=== PATIENT | male | born 1945 | race Caucasian/White ===

== ENCOUNTER 2016-10-09 08:00 | Outpatient (CLI) | payer MEDICARE, OTHER | END 2016-10-09 08:01 | disposition home or self-care (01) | DX: R42 Dizziness and giddiness (principal); I10 Essential (primary) hypertension; R55 Syncope and collapse ==

== ENCOUNTER 2017-04-11 08:11 | Outpatient (CLI) | payer MEDICARE, OTHER ==
[2017-04-11 14:23] LABS: TRIGLYCERIDES 274 mg/dL; VLDL CHOLESTEROL 55 mg/dL
[2017-04-11 14:24] LABS: ALBUMIN/GLOBULIN RATIO 1.4 (1.0-2.2); BILIRUBIN,TOTAL 1.1 mg/dL (0.2-1.0); BUN - BLOOD UREA NITROGEN 14 mg/dL (6-20); CARBON DIOXIDE - CO2 23 mmol/L (21-32); CHLORIDE 105 mmol/L (101-111); CHOL/HDL RATIO 4.8 (<5.0); CHOLESTEROL 187 mg/dL; CREATININE 0.9 mg/dL (0.6-1.2); GFR - MDRD 84 (>89); GLUCOSE 113 mg/dL (70-100); HDL CHOLESTEROL 39 mg/dL; LDL/HDL RATIO 2.4 (<3.6); SODIUM 137 mmol/L (135-145); TOTAL PROTEIN 7.1 g/dL (6.7-8.2)
== END 2017-04-11 08:12 | disposition home or self-care (01) ==
LOC: LAB.WCP 08:11
PROVIDERS: ATTEND Family Medicine
DX: R55 Syncope and collapse (principal); E88.1 Lipodystrophy, not elsewhere classified; I10 Essential (primary) hypertension
CPT/HCPCS: 36415; 80053; 80061

== ENCOUNTER 2017-05-08 14:41 | Outpatient (CLI) | payer MEDICARE, OTHER ==
--- NOTE | 2017-05-08 17:00 | Ultrasound Report ---
RENAL ULTRASOUND: 05/08/2017 CLINICAL INDICATION: Hematuria. TECHNIQUE: Real-time sonographic vascular imaging was performed by the sound person through the kidney s utilizing both color-flow and Doppler spectral analysis. Multiple sales representative education courses static images wer e saved for review. FINDINGS: The right kidney measures 11.8 x 7.6 x 7.2 cm, and the left kidney measures 12.0 x 5.8 x 4 .9 cm. No hydronephrosis, focal renal lesion, or perinephric collection is seen. No definite shadowin g calculus is appreciated. Prevoid, the bladder measures 7.5 x 5.8 x 5.7 cm, yielding a prevoid volume of 130 mL. Bilateral uret eral jets are visualized. Postvoid residual is 30 mL. No focal bladder wall lesion is appreciated. IMPRESSION: A 30 mL POSTVOID RESIDUAL. OTHERWISE, UNREMARKABLE RENAL ULTRASOUND. NO EVIDENT ETIOLOGY FOR PATIENT'S HEMATURIA. JOB #: [id number] EXT JOB #:
== END 2017-05-08 14:42 | disposition home or self-care (01) ==
LOC: DI 14:41
PROVIDERS: ATTEND Physician Assistant Medical
DX: R31.9 Hematuria, unspecified (principal)
CPT/HCPCS: 76770

== ENCOUNTER 2017-06-19 10:11 | Outpatient (CLI) | payer MEDICARE, OTHER ==
[2017-06-19] MEDS ORDERED: IOPAMIDOL-300 50 ML VIAL ONE (14:05)
[2017-06-19] MEDS ORDERED: IOPAMIDOL-300 100 ML VIAL IVP ONE (14:44)
--- NOTE | 2017-06-19 19:05 | CT Report ---
CT IVP: 06/19/2017 CLINICAL INDICATION: Gross hematuria. TECHNIQUE: Axial CT images of the abdomen and pelvis were obtained prior to and following 100 mL Iso satish-300 intravenously, using split-bolus technique. COMPARISON: 02/06/2008 FINDINGS: Limited evaluation of the lung bases is unremarkable. ABDOMEN: On the unenhanced images, the kidneys demonstrate no evidence of hydronephrosis or nephroli thiasis. The kidneys demonstrate symmetric uptake and excretion of contrast. Small cysts are presen t. No solid renal lesion or collecting system lesion is identified. The liver, spleen, pancreas and adrenal glands are unremarkable. The gallbladder is not dilated. No bowel dilatation, free gas, or free fluid is present. No abdominal adenopathy is seen. The appendix is seen in the right abdomen, and is normal in caliber. PELVIS: The distal ureters and urinary bladder appear unremarkable. No pelvic adenopathy or free fl uid is present. Osseous structures demonstrate degenerative changes. IMPRESSION: NO EVIDENCE OF NEPHROLITHIASIS. NO SOLID RENAL MASS IDENTIFIED. CONSIDER FURTHER EVALU ATION WITH CYSTOSCOPY. In accordance with CT protocol optimization, one or more of the following dose reduction techniques w ere utilized for this exam: automated exposure control, adjustment of mA and/or KV based on patient size, or use of iterative reconstructive technique. JOB #: [id number] EXT JOB #:[id number]
== END 2017-06-19 10:12 | disposition home or self-care (01) ==
LOC: DI 10:11
PROVIDERS: ATTEND Physician Assistant
DX: R31.0 Gross hematuria (principal)
CPT/HCPCS: 74178; Q9967

== ENCOUNTER 2018-01-29 08:00 | Outpatient (CLI) | payer MEDICARE, OTHER ==
[2018-01-29 12:52] LABS: BASOPHILS % (AUTO) 0.8 %; EOSINOPHILS # (AUTO) 0.3 10^3/uL (0.0-0.7); EOSINOPHILS % (AUTO) 5.9 %; HGB - HEMOGLOBIN 14.5 g/dL (14.0-18.0); LYMPHOCYTES # (AUTO) 2.2 10^3/uL (1.5-3.5); MEAN CORPUSCULAR HEMOGLOBIN 32.3 pg (27.0-31.0); MEAN CORPUSCULAR HGB CONC 34.1 g/dL (32.0-36.0); MEAN CORPUSCULAR VOLUME 94.6 fL (80.0-94.0); MEAN PLATELET VOLUME 9.5 fL (7.4-11.4); MONOCYTES # (AUTO) 0.4 10^3/uL (0.0-1.0); MONOCYTES % (AUTO) 7.7 %; NEUTROPHILS # (AUTO) 2.6 10^3/uL (1.5-6.6); NEUTROPHILS % (AUTO) 46.6 %; PLT - PLATELET COUNT 147 10^3/uL (130-450); RED CELL DISTRIBUTION WIDTH 12.7 % (12.0-15.0); WHITE BLOOD COUNT 5.6 x10^3/uL (4.8-10.8)
[2018-01-29 13:22] LABS: ALBUMIN 4.1 g/dL (3.2-5.5); ALBUMIN/GLOBULIN RATIO 1.3 (1.0-2.2); ALKALINE PHOSPHATASE 48 IU/L (42-121); ALT ALANINE AMINOTRANSFERASE 30 IU/L (10-60); AST ASPARTATE AMINOTRANSFERASE 24 IU/L (10-42); BILIRUBIN,TOTAL 1.2 mg/dL (0.2-1.0); BUN - BLOOD UREA NITROGEN 16 mg/dL (6-20); CARBON DIOXIDE - CO2 25 mmol/L (21-32); CHLORIDE 105 mmol/L (101-111); CHOL/HDL RATIO 5.8 (<5.0); CHOLESTEROL 191 mg/dL; CREATININE 1.1 mg/dL (0.6-1.2); GFR - MDRD 66 (>89); GLUCOSE 124 mg/dL (70-100); HDL CHOLESTEROL 33 mg/dL; LDL CHOLESTEROL,CALCULATED 84 mg/dL; LDL/HDL RATIO 2.5 (<3.6); SODIUM 136 mmol/L (135-145); TOTAL PROTEIN 7.2 g/dL (6.7-8.2); VLDL CHOLESTEROL 74 mg/dL
[2018-01-30 14:32] LABS: HEPATITIS A IGM NON-REACTIVE (NON-REACTIVE); HEPATITIS B CORE ANTIBODY IGM NON-REACTIVE (NON-REACTIVE); HEPATITIS B SURFACE ANTIGEN NON-REACTIVE (NON-REACTIVE); HEPATITIS C ANTIBODY NON-REACTIVE (NON-REACTIVE)
== END 2018-01-29 08:01 | disposition home or self-care (01) ==
LOC: LAB.WCP 08:00
PROVIDERS: ATTEND Family Medicine
DX: R06.09 Other forms of dyspnea (principal); E78.5 Hyperlipidemia, unspecified; R53.83 Other fatigue; R51 Headache; Z11.59 Encounter for screening for other viral diseases; Z12.5 Encounter for screening for malignant neoplasm of prostate
CPT/HCPCS: 36415; 80053; 80061; 80074; 84443; 85025; G0103; 83721; 84153

== ENCOUNTER 2018-11-26 11:47 | Outpatient (CLI) | payer MEDICARE, OTHER ==
[2018-11-26 19:36] LABS: HGB - HEMOGLOBIN 15.7 g/dL (14.0-18.0); MEAN CORPUSCULAR HGB CONC 33.7 g/dL (32.0-36.0); MEAN CORPUSCULAR VOLUME 94.9 fL (80.0-94.0); RED BLOOD COUNT 4.91 10^6/uL (4.70-6.10); RED CELL DISTRIBUTION WIDTH 13.3 % (12.0-15.0); WHITE BLOOD COUNT 6.5 x10^3/uL (4.8-10.8)
[2018-11-26 19:57] LABS: TROPONIN I < 0.04 ng/mL (<0.49)
[2018-11-26 20:00] LABS: CREATINE KINASE MB 1.9 ng/mL (0.6-6.3)
[2018-11-26 20:02] LABS: CALCIUM 9.2 mg/dL (8.5-10.3); CREATININE 0.9 mg/dL (0.6-1.2)
== END 2018-11-26 11:48 | disposition home or self-care (01) ==
LOC: LAB.WCP 11:47
PROVIDERS: ATTEND Family Medicine
DX: R06.00 Dyspnea, unspecified (principal)
CPT/HCPCS: 36415; 80048; 82553; 83880; 84484; 85027; 85379

== ENCOUNTER 2019-03-03 10:39 | Outpatient (CLI) | payer MEDICARE, OTHER ==
--- NOTE | 2019-03-03 15:02 | CT Report ---
Reason: ABDOMINAL PAIN,HEMATURIA,ABNORMAL NUC PALP Procedure Date: 03/03/2019 Accession Number: [id number] / [id number] Procedure: CT - CHEST WO CPT Code: FULL RESULT: EXAM: CT CHEST EXAM DATE: 03/03/2019 11:20 AM. CLINICAL HISTORY: ABDOMINAL PAIN,HEMATURIA,ABNORMAL NUC, PALP. COMPARISONS: None. TECHNIQUE: Routine helical CT imaging was performed through the chest. IV contrast: None. Reconstructions: Coronal and sagittal. In accordance with CT protocol optimization, one or more of the following dose reduction techniques were utilized for this exam: automated exposure control, adjustment of mA and/or KV based on patient size, or use of iterative reconstructive technique. FINDINGS: Lungs/Pleura: Clear. No effusion or pneumothorax. Mediastinum: Normal heart size. No pericardial effusion. At least 2 vessel coronary artery calcification. Bones: Unremarkable. Visualized Abdomen: See separate report. Other: None. IMPRESSION: No acute disease. [facility]
--- NOTE | 2019-03-03 16:56 | CT Report ---
Reason: ABDOMINAL PAIN, HEMATURIA. Procedure Date: 03/03/2019 Accession Number: [id number] / [id number] Procedure: CT - Abdomen/Pelvis WO CPT Code: FULL RESULT: EXAM: CT ABDOMEN AND PELVIS (CT KUB) EXAM DATE: 03/03/2019 11:20 AM. CLINICAL HISTORY: Abdominal pain, hematuria. COMPARISONS: ABDOMEN/PELVIS W/WO 06/19/2017 1:56 PM. TECHNIQUE: Routine axial helical CT imaging was performed through the abdomen and pelvis without IV contrast. Reconstructions: Coronal and sagittal. In accordance with CT protocol optimization, one or more of the following dose reduction techniques were utilized for this exam: automated exposure control, adjustment of mA and/or KV based on patient size, or use of iterative reconstructive technique. FINDINGS: Lung Bases: Unremarkable. Right Kidney/Ureter: No stones, hydronephrosis, or hydroureter. No perinephric fat stranding. Left Kidney/Ureter: No calculi, hydronephrosis or hydroureter evident. A small hypodense lesion in the left mid kidney measures 8 mm similar to prior exam, likely a cyst. Other Solid Organs: Noncontrast images of the solid organs are grossly unremarkable. Gallbladder/Bile Ducts: Unremarkable. Peritoneal Cavity: No free fluid, free air or gulshan adenopathy. Bowel is grossly unremarkable. Pelvic Organs: No bladder stones or wall thickening. Noncontrast images of the visualized pelvic organs are unremarkable. Vasculature: Unremarkable. Other: Multilevel degenerative disk disease present, worst at the L1-L2 and L4-L5 levels as before. IMPRESSION: 1. No urinary tract stones or hydronephrosis. 2. Probable 8 mm left mid renal cyst as before. [facility]
== END 2019-03-03 10:40 | disposition home or self-care (01) ==
LOC: DI 10:39
PROVIDERS: ATTEND Internal Medicine Cardiovascular Disease
DX: R10.9 Unspecified abdominal pain (principal); R31.9 Hematuria, unspecified
CPT/HCPCS: 71250; 74176

== ENCOUNTER 2019-06-15 08:00 | Outpatient (CLI) | payer MEDICARE, OTHER ==
[2019-06-15 12:30] LABS: ALBUMIN 4.2 g/dL (3.2-5.5); ALBUMIN/GLOBULIN RATIO 1.4 (1.0-2.2); ALKALINE PHOSPHATASE 59 IU/L (42-121); ALT ALANINE AMINOTRANSFERASE 41 IU/L (10-60); AST ASPARTATE AMINOTRANSFERASE 30 IU/L (10-42); BILIRUBIN,TOTAL 1.6 mg/dL (0.2-1.0); BUN - BLOOD UREA NITROGEN 15 mg/dL (6-20); CALCIUM 9.3 mg/dL (8.5-10.3); CARBON DIOXIDE - CO2 25 mmol/L (21-32); CHLORIDE 108 mmol/L (101-111); CHOL/HDL RATIO 2.8 (<5.0); CHOLESTEROL 143 mg/dL; CREATININE 1.2 mg/dL (0.6-1.2); GFR - MDRD 60 (>89); GLUCOSE 117 mg/dL (70-100); HDL CHOLESTEROL 51 mg/dL; LDL CHOLESTEROL,CALCULATED 69 mg/dL; LDL/HDL RATIO 1.4 (<3.6); SODIUM 142 mmol/L (135-145); TOTAL PROTEIN 7.1 g/dL (6.7-8.2); VLDL CHOLESTEROL 23 mg/dL
== END 2019-06-15 23:59 | disposition home or self-care (01) ==
LOC: LAB.WCP 08:00
PROVIDERS: ATTEND Family Medicine
DX: E78.5 Hyperlipidemia, unspecified (principal)
CPT/HCPCS: 36415; 80053; 80061; 83721

== ENCOUNTER 2019-09-21 09:58 | Outpatient (CLI) | payer MEDICARE, OTHER ==
--- NOTE | 2019-09-21 12:27 | SLEEP CARE CONSULTATION ---
Information from patient questionnaire entered by Melissa Nunez. I have reviewed and concur with the information entered by Melissa Nunez. This document represents the service I personally performed and the decisions made by me, Channing Thomas MD, [facility]. History of Present Illness Reason for Visit: New patient Chief Complaint: reports: Unrefreshed sleep, Observed pauses in breathing, Fatigue Usual bedtime: 10:30 pm Time it takes to fall asleep: 30-40 mins Snores at night: Yes (occasionally) Observed to quit breathing while asleep: Yes Sleeps alone due to snoring: No Number of times waking at night: 1 Reasons for waking at night: reports: Bathroom Recalls having dreams: Yes Usually gets out of bed at: 7 am Feels refreshed in the morning: No Morning headache: No Sleepy or fatigued during the day: Yes Ever fallen asleep while driving: No Takes day naps: No Prior sleep studies: No Additional HPI information: I had the pleasure of seeing Mr. Raman along with his today regarding the possibility of him having a sleep disorder. As you know, he is a 74 year old gentleman who complains of loud snore and observed apneas. He recently had an abnormal overnight pulse oximetry ordered by his field account director. The patient tells me that he normally goes to bed around 10:30 pm, and it takes him approximately 30 - 40 minutes to fall asleep. He takes alprazolam every night for anxiety. He has been told that he snores loudly and irregularly at night. He has also been observed to stop breathing in his sleep. His can still sleep in the same bed. He can recall waking up on the average of 1 time during the night. Most of the time he wakes up because of having to use the bathroom. He has awakened occasionally because of his own snoring, choking, and having to gasp for air. There is a lot of tossing and turning in his sleep. No somniloquy (sleep talking) or somnambulism (sleep walking). Generally he can recall having dreams. In the morning he usually gets up out of the bed around 7 a.m. not feeling refreshed nor rested. He usually does not have a morning headache. During the day he does not feel sleepy and fatigued. His score on [place] Sleepiness Scale is 1 out of 24. He as never fallen asleep while driving nor has had any accident due to sleepiness. He usually does not take naps during the day. Upon falling asleep during the day he denies having vivid dreams. He has never had sleep paralysis, experienced cataplexy or symptoms of restless leg syndrome. He reports having impaired concentration during the day. - Parasomnia Symptoms Ever been unable to move upon waking from sleep: No Bothered by creepy, crawly, restless sensations in legs: No Problems with memory or concentration: Yes Subjective Initial [place] Sleepiness Scale score: 1 Past Medical History Past Medical History: reports: Hypertension, Arrythmia (AV-grecia tachycardia), Other (daily headaches) Social History The patient's occupation is Retired. Patient is and lives in [place]. Have you smoked in the past 12 months: No Alcohol use: Yes Alcohol amount and frequency: 12-22 oz daily Caffeine use: Yes Caffeine amount and frequency: 4 cups in the morning Allergies and Home Medications Drug allergies reviewed: Yes Home medication list reviewed: Yes Allergy and home medication list: Meds: alprazolam, tamsulosin, verapamil, indomethacin, tramadol, atorvastatin Allergies: penicillin Review of Systems Weight loss over past 5 years: 10 Cardiovascular: reports: high blood pressure, irregular heart rate or pulse Respiratory: reports: shortness of breath Gastrointestinal: denies: heartburn, difficulty swallowing, nausea, vomitting, diarrhea, abdominal pain, other Urinary: reports: frequency (improving) Neurological: reports: headaches Psychiatric: denies: Attention Deficit Hyperactivity, anxiety, depression, mood disorder, claustrophobia, other Ear/Nose/Throat: reports: sinus problems (a.m. only), wisdom teeth removed (3) Endocrine: denies: thyroid disease, history of goiter, sluggishness, too hot or cold, excessive thirst, increased appetite, increased urination, unexplained weakness, other Musculoskeletal: reports: neck pain, back pain Immunologic: denies: sneezing, rash, itching, allergies to food or environment, other Physical Exam Vital signs obtained and entered by: Dr. Thomas Blood Pressure: 138/84 Cuff size: regular Heart Rate: 75 O2 Saturation: 98 Height: 6 ft Weight: 219 lb Body Mass Index: 29.7 BMI Classification: Overweight Neck circumference: 16.5 Mood/affect: normal HEENT: No craniofacial malformation Nostrils: patent to airflow Turbinates: normal Septum: midline Mouth and throat: narrow oropharynx Soft palate: long Hard palate: normal Uvula: normal Uvula visualization: 50% Mallampati Class II Tongue: normal in size Tonsils: small Chin and jaw: normal size and position Neck: normal w/o lymphadenopathy or thyromegaly Heart: regular rate and rhythm Lungs: clear bilaterally Abdomen: soft, non-tender Extremities: no edema or clubbing Neurologic: intact, no focal deficits Impression and Plan IMPRESSION: 1. Obstructive Sleep Apnea-Hypopnea Syndrome, as suggested by history of loud and irregular snoring, observed cessation of breath while asleep, cognitive impairment, and persistent fatigue. Narrow oropharynx and obesity are common predisposing factors for obstructive sleep apnea-hypopnea syndrome. Obstructive sleep apnea-hypopnea can also cause tachycardia and hypertension. Pathophysiology of sleep-disordered breathing was discussed. I recommend proceeding to polysomnography to confirm the diagnosis and to assess severity. If he has significant sleep disordered breathing, a manual CPAP titration study will also be performed to find the optimal treatment pressure. I informed the patient of what the sleep studies involve and after some discussion, he agreed to proceed. Plan: 1. Schedule polysomnography + manual CPAP titration study 2. Avoid long distance driving or when feeling sleepy. 3. Avoid alcohol, sedative and muscle relaxant around bedtime. 4. Attempt to lose weight. 5. Return in 1 to 2 weeks after the study to discuss results and initiate therapy. I spent 100% of this 20 minute visit face to face with the patient with greater than 50% of this was spent time counseling the patient and coordination of care.
[2019-09-21 12:28] VITALS: BP 138/84
== END 2019-09-21 09:59 | disposition home or self-care (01) ==
LOC: SC 09:58
PROVIDERS: ATTEND Internal Medicine Pulmonary Disease
DX: R53.83 Other fatigue (principal); R06.81 Apnea, not elsewhere classified; R41.89 Other symptoms and signs involving cognitive functions and awareness; R06.83 Snoring
CPT/HCPCS: 99203; G0463; 99212

== ENCOUNTER 2019-10-01 19:25 | Outpatient (CLI) | payer MEDICARE, OTHER | END 2019-10-01 19:26 | disposition home or self-care (01) | LOC: SC 19:25 | PROVIDERS: ATTEND Internal Medicine Pulmonary Disease | DX: G47.33 Obstructive sleep apnea (adult) (pediatric) (principal); I47.2 Ventricular tachycardia | CPT/HCPCS: 95810 ==

== ENCOUNTER 2019-11-30 09:02 | Outpatient (CLI) | payer MEDICARE, OTHER ==
[2019-11-30 10:32] VITALS: BP 142/76
--- NOTE | 2019-11-30 10:32 | SLEEP CARE CONSULTATION ---
Information from patient questionnaire entered by Melissa Nunez. I have reviewed and concur with the information entered by Melissa Nunez. This document represents the service I personally performed and the decisions made by me, Jessica Bello RN, MSN, BED AND BREAKFAST OPERATOR. History of Present Illness Accompanied by: Spouse Initial [place] Sleepiness Scale score: 1 Current [place] Sleepiness Scale score: 1 Additional HPI information: KAMILLE PARR returns with spouse for follow up and results of the recently performed polysomnography. I explained the pathophysiology behind obstructive sleep apnea. We then spent quite a bit of time discussing different treatment options. For mild obstructive sleep apnea, surgery and oral appliance are alternatives to nasal CPAP therapy but in moderate or severe cases, nasal CPAP is the most effective and reliable treatment. Because apnea is primarily in supine position, then positional management therapy could be effective. Methods discussed such as positioning with pillows, using a T-shirt with tennis balls in the back, and shown commercial products that have a pillow format on back to prevent supine sleep. I reviewed the impact of weight changes on sleep apnea and strongly recommended losing weight. After some discussion, the patient opted to go with the nasal CPAP therapy. Nasal autoCPAP set at [id number] will be ordered with rationale explained until manual titration study is scheduled to find optimal pressure I explained how CPAP machine works with sample devices Respironics Dreamstation and [employer] [id number] and what to expect when using the machine. Using CPAP every night in order to get used to it was emphasized. Patient advised to put CPAP mask on before getting into bed so as not to fall asleep without CPAP. To assist acclimation to CPAP use, it could also be used for a short time during day while reading or watching TV. The patient was instructed to call the CPAP supplier to discuss any mechanical problem that may occur. If the mask given is uncomfortable or is difficult to keep on through the night even with adjustment, contact the CPAP supplier as many will replace with another mask style if notified before 30 days. If snoring or perceives is not getting enough air or too much air from the machine, notify this office. [facility] patient education PAP tips reviewed and given to patient. Patient prefers Dreamstation. Patient counseled not drink alcohol less than 4 hours before bedtime as it can increase snoring and apnea. Patient does not drink alcohol. Patient was cautioned about risks of drowsy driving until sleepiness symptoms resolve. Patient denies drowsy driving. [facility] patient education on snoring and sleep apnea given and reviewed. Sleep Study - Results Polysomnography/Home Sleep Study results: The quality of the study is good. The patient had normal sleep efficiency. The sleep architecture was abnormal for sleep fragmentation and reduced amount of time spent in slow wave sleep (N3). Respiratory monitoring showed moderate obstructive sleep apnea-hypopnea (AHI = 21.0) associated with frequent arousals, oxyhemoglobin desaturation and mild hypoxia (raj oxygen saturation of 84%). The respiratory events occurred almost exclusively during supine sleep (supine AHI = 27.6; non-supine = 2.82). Snore was light to loud in intensity. There was no significant periodic leg movement of sleep. Cardiac rhythm was normal sinus rhythm with a short 5beat run of ventricular tachycardia. No abnormal behavior (parasomnia) observed during the night. Allergies and Home Medications Known drug allergies: No Home medication list reviewed: Yes (see list ) Allergy and home medication list: tamsulosin 0.4mg daily ibuprofen 600mg twice daily alprazolam 0.25mg HS tramadol 50mg daily AM 1/2 tab noon indomethicin 25 mg up to 4 daily verapamil 120mg po daily verapamil 80mg fast acting prn tachycardia atorvastatin HS Review of Systems Review of systems same as previous: Yes Physical Exam Blood Pressure: 142/76 Cuff size: long Heart Rate: 76 O2 Saturation: 98 Height: 6 ft Weight: 208 lb 12.8 oz Body Mass Index: 28.3 BMI Classification: Overweight Impression and Plan 1. Obstructive Sleep Apnea-Hypopnea Syndrome, moderate, with lowest oxygen saturation of 84%. Obviously this is the cause of the patients symptoms of unrefreshed sleep, and excessive daytime sleepiness. Positive pressure therapy could benefit his hypertension and arrhythmia. As mentioned above, the patient will be started on nasal autoCPAP therapy with pressure set at 4-15 cmH2O until a manual titration study can be completed to find optimal treatment pressure. Compliance guidelines also reviewed. A copy of compliance guidelines will be given for reference at check out. Because the apnea is more severe supine, I instructed to avoid sleeping supine using pillow positioning until able to start CPAP use. * Nasal auto CPAP therapy, pressure at 4-15 cm H2O. * Schedule CPAP titration * Attempt to lose weight. * Avoid alcohol consumption near bedtime. * Avoid supine sleep until using CPAP. * The patient is again cautioned about driving until sleepiness completely resol ves. * Return one month after CPAP obtained. I will assess response to therapy and compliance at that time. Time Spent with Patient (minutes): 42 I spent 100% of this visit face to face with the patient with greater than 50% of this was spent time counseling the patient and coordination of care.
== END 2019-11-30 09:03 | disposition home or self-care (01) ==
LOC: SC 09:02
PROVIDERS: ATTEND Nurse Practitioner Family
DX: G47.33 Obstructive sleep apnea (adult) (pediatric) (principal); E66.3 Overweight; Z68.28 Body mass index [BMI] 28.0-28.9, adult
CPT/HCPCS: 99215; G0463; 99212

== ENCOUNTER 2019-12-08 08:00 | Outpatient (CLI) | payer MEDICARE, OTHER ==
[2019-12-08 19:39] LABS: BILIRUBIN,URINE NEGATIVE (NEGATIVE); GLUCOSE, URINE (UA) NEGATIVE (NEGATIVE); KETONES,URINE (UA) NEGATIVE (NEGATIVE); LEUKOCYTE ESTERASE, URINE NEGATIVE (NEGATIVE); NITRITE,URINE NEGATIVE (NEGATIVE); OCCULT BLOOD,URINE NEGATIVE (NEGATIVE); PH,URINE 6.5 PH (5.0-7.5); PROTEIN,URINE NEGATIVE (NEGATIVE); UROBILINOGEN,URINE 0.2 (NORMAL) E.U./dL (NORMAL)
[2019-12-08 19:56] LABS: CLARITY,URINE CLEAR (CLEAR)
== END 2019-12-08 23:59 | disposition home or self-care (01) ==
LOC: LAB.R 08:00
PROVIDERS: ATTEND Physician Assistant Medical
DX: R35.1 Nocturia (principal); R30.0 Dysuria
CPT/HCPCS: 81001; 81003; 87086

== ENCOUNTER 2019-12-15 12:19 | Outpatient (CLI) | payer MEDICARE, OTHER ==
[2019-12-15 19:21] LABS: HB2 TOTAL 16.7 g/dL; HEMOGLOBIN A1C 0.65 g/dL; HEMOGLOBIN A1C % 5.7 % (4.6-6.2)
== END 2019-12-15 23:59 | disposition home or self-care (01) ==
LOC: LAB.N 12:19
PROVIDERS: ATTEND Family Medicine
DX: R73.9 Hyperglycemia, unspecified (principal)
CPT/HCPCS: 36415; 83036

== ENCOUNTER 2020-02-02 15:44 | Outpatient (CLI) | payer MEDICARE, OTHER ==
--- NOTE | 2020-02-02 13:12 | SLEEP CARE CONSULTATION ---
Information from patient questionnaire entered by Asha English. I have reviewed and concur with the information entered by Asha English. This document represents the service I personally performed and the decisions made by me, Channing Thomas MD, [facility]. History of Present Illness Service Date and Time: 02/02/2020 1300 Previous diagnosis: Moderate, Obstructive Sleep Apnea-Hypopnea Syndrome AHI: 21.0 Reason for follow up: first compliance, with manual titration Equipment type: CPAP Equipment obtained from: [employer] HPI additional information: To minimize the risk of COVID-19 exposure, the patient has requested and consented to this telephone visit. The patient also agrees to having his insurance billed. HPI: Mr. Raman was called today to follow up on the nasal CPAP therapy. He was diagnosed to have moderate obstructive sleep apnea-hypopnea syndrome. [employer] is his durable medical supplier. He complained that [employer] tried to take away his machine after a month because, according to the durable medical supplier, he was not using it enough. The patient wears a Respironics Wisp nasal mask that we gave him from the sleep lab ([facility] [place] fitted him with nasal pillows which he finds less comfortable). He reports using the device nightly and all through the night. The compliance report shows usage in 30 nights out of the past 30 nights, averaging 6.9 hours a night. The > 4 hour compliance rate for the past 30 days is 83%. He complained of no particular problem with the device such as soreness on the face, dry nose, epistaxis, nasal congestion or headache. He thinks that the pressure 4 15 cmH2O is comfortable. On the CPAP therapy he notices improvement in his sleep quality, and that he wakes up feeling fresher in the morning and more awake/alert during the day. His notices no snore at all. The average residual AHI is 4.5; and average time in large leak per day is 9.8. The 90th percentile pressure is 8.4 cmH2O. CPAP Compliance Data - Data Reviewed with Patient Average duration of nightly device use: 6H 55M Compliance rate %: 83 Current pressure setting (cmH2O): 4-15 Subjective Initial [place] Sleepiness Scale score: 1 Allergies and Home Medications Drug allergies reviewed: Yes Home medication list reviewed: Yes Review of Systems Review of systems same as previous: Yes Physical Exam Height: 6 ft Impression and Plan IMPRESSION: 1. Obstructive Sleep Apnea-Hypopnea Syndrome, moderate (AHI was 21.0) with the patient doing well on nasal CPAP therapy. He has excellent compliance and significant clinical improvement. The current pressure appears effective and comfortable. His mask fits well. Overall, he is very satisfied with treatment and plans to continue with it long-term. No adjustment is necessary today. PLAN: 1. Continue with autoCPAP set at 4 - 15 cmH2O. 2. Try other masks, e.g. Respironics DreamWisp nasal mask. 3. Return in one year for follow up or earlier if there is any problem with the treatment. Visit Type: Telehealth Phone Patient Location: Home Location of Provider: Home Patient agrees and consents to this telehealth visit type: Yes Patient agrees to have their insurance billed: Yes Time Spent with Patient (minutes): 10 Provider Statement: I spent 100% of the Telehealth Phone Call with the patient with greater than 50% spent counseling the patient and coordination of care.
== END 2020-02-02 15:45 | disposition home or self-care (01) ==
LOC: SC 15:44
PROVIDERS: ATTEND Internal Medicine Pulmonary Disease
DX: G47.33 Obstructive sleep apnea (adult) (pediatric) (principal)

== ENCOUNTER 2020-09-16 08:00 | Outpatient (CLI) | payer MEDICARE, OTHER ==
[2020-09-16 18:16] LABS: BASOPHILS # (AUTO) 0.1 10^3/uL (0.0-0.1); BASOPHILS % (AUTO) 0.8 %; EOSINOPHILS # (AUTO) 0.1 10^3/uL (0.0-0.7); EOSINOPHILS % (AUTO) 1.8 %; HGB - HEMOGLOBIN 16.5 g/dL (14.0-18.0); LYMPHOCYTES # (AUTO) 1.9 10^3/uL (1.5-3.5); LYMPHOCYTES % (AUTO) 28.7 %; MEAN CORPUSCULAR HEMOGLOBIN 31.5 pg (27.0-31.0); MEAN CORPUSCULAR HGB CONC 33.1 g/dL (32.0-36.0); MEAN CORPUSCULAR VOLUME 95.2 fL (80.0-94.0); MEAN PLATELET VOLUME 11.1 fL (7.4-11.4); MONOCYTES # (AUTO) 0.6 10^3/uL (0.0-1.0); MONOCYTES % (AUTO) 8.5 %; NEUTROPHILS # (AUTO) 3.9 10^3/uL (1.5-6.6); NEUTROPHILS % (AUTO) 59.9 %; PLT - PLATELET COUNT 160 10^3/uL (130-450); RED BLOOD COUNT 5.23 10^6/uL (4.70-6.10); RED CELL DISTRIBUTION WIDTH 12.5 % (12.0-15.0); WHITE BLOOD COUNT 6.6 x10^3/uL (4.8-10.8)
[2020-09-16 18:25] LABS: BILIRUBIN,URINE NEGATIVE (NEGATIVE); GLUCOSE, URINE (UA) NEGATIVE (NEGATIVE); KETONES,URINE (UA) NEGATIVE (NEGATIVE); LEUKOCYTE ESTERASE, URINE NEGATIVE (NEGATIVE); NITRITE,URINE NEGATIVE (NEGATIVE); OCCULT BLOOD,URINE NEGATIVE (NEGATIVE); PROTEIN,URINE NEGATIVE (NEGATIVE); UROBILINOGEN,URINE 0.2 (NORMAL) E.U./dL (NORMAL)
[2020-09-16 18:35] LABS: ALBUMIN 4.5 g/dL (3.2-5.5); ALBUMIN/GLOBULIN RATIO 1.5 (1.0-2.2); ALKALINE PHOSPHATASE 69 IU/L (42-121); ALT ALANINE AMINOTRANSFERASE 44 IU/L (10-60); AST ASPARTATE AMINOTRANSFERASE 28 IU/L (10-42); BILIRUBIN,TOTAL 2.4 mg/dL (0.2-1.0); BUN - BLOOD UREA NITROGEN 24 mg/dL (6-20); CALCIUM 9.7 mg/dL (8.5-10.3); CARBON DIOXIDE - CO2 24 mmol/L (21-32); CHLORIDE 104 mmol/L (101-111); CHOL/HDL RATIO 3.1 (<5.0); CHOLESTEROL 159 mg/dL; CREATININE 1.3 mg/dL (0.6-1.2); GLUCOSE 115 mg/dL (70-100); HDL CHOLESTEROL 52 mg/dL; LDL CHOLESTEROL,CALCULATED 81 mg/dL; LDL/HDL RATIO 1.6 (<3.6); SODIUM 139 mmol/L (135-145); TOTAL PROTEIN 7.6 g/dL (6.7-8.2); VLDL CHOLESTEROL 26 mg/dL
[2020-09-16 18:36] LABS: BACTERIA,URINE None Seen /HPF (None Seen); CLARITY,URINE CLEAR (CLEAR); RBC,URINE None Seen /HPF (0-5); SQUAMOUS EPITHELIAL CELL,UR NONE SEEN (<= Few)
[2020-09-16 18:55] LABS: HEMOGLOBIN A1c% 5.5 % (4.27-6.07)
== END 2020-09-16 23:59 | disposition home or self-care (01) ==
LOC: LAB.WCP 08:00
PROVIDERS: ATTEND Internal Medicine
DX: E78.5 Hyperlipidemia, unspecified (principal); E88.81 Metabolic syndrome and other insulin resistance; R73.01 Impaired fasting glucose; R31.9 Hematuria, unspecified
CPT/HCPCS: 36415; 80053; 80061; 81001; 83036; 83721; 84443; 85025; 87086

== ENCOUNTER 2020-09-22 08:00 | Outpatient (CLI) | payer MEDICARE, OTHER ==
[2020-09-25 14:52] LABS: CHENODEOXYCHOLIC ACID 7.6 umol/L (< OR = 3.1); CHOLIC ACID 2.7 umol/L (< OR = 1.8); DEOXYCHOLIC ACID 8.4 umol/L (< OR = 2.4)
== END 2020-09-22 23:59 | disposition home or self-care (01) ==
LOC: LAB.WCP 08:00
PROVIDERS: ATTEND Internal Medicine
DX: E80.7 Disorder of bilirubin metabolism, unspecified (principal)
CPT/HCPCS: 36415; 82542

== ENCOUNTER 2021-03-08 08:57 | Emergency (ER) | payer MEDICARE, OTHER ==
[2021-03-08] MEDS ORDERED: BUPIVACAINE 0.5% PF 10 ML VIAL SUBQ STA (09:36)
--- NOTE | 2021-03-08 09:38 | XRAY Report ---
PROCEDURE: Finger(s) LT INDICATIONS: L thumb injury TECHNIQUE: AP hand, 2 views of the left first finger(s) acquired. COMPARISON: None FINDINGS: Bones: Mildly displaced fracture of the tuft of the first distal phalange. Soft tissues: No suspicious soft tissue calcifications. IMPRESSION: First distal phalange fracture. Reviewed by: Andria Husain MD, PhD on 03/08/2021 9:37 AM PDT Approved by: Andria Husain MD, PhD on 03/08/2021 9:37 AM PDT Station ID: [id number]
[2021-03-08] MEDS ORDERED: TETANUS/DIPHTHERIA/PERTUSSIS 0.5 ML SYRINGE IM ONE (10:12)
--- NOTE | 2021-03-08 10:12 | ED Physician Documentation ---
History of Present Illness - Stated complaint Stated Complaint: LT THUMB INJURY - Chief complaint Chief Complaint: Laceration - History obtained from History obtained from: Patient - Additonal information Additional information: Patient comes emergency department chief complaint of injury to left thumb tip with clippers. Patient states he was using manual clippers to cut branches in his yard, and was holding onto the branch with his left hand while operating clippers with his right. He states that the blades caught the end of his left thumb and he believes cut through to the bone. No other injuries. Last tetanus was at least 10 years ago. Injury happened this morning. Review of Systems Ten Systems: 10 systems reviewed and negative Constitutional: reports: Reviewed and negative Eyes: reports: Reviewed and negative Ears: reports: Reviewed and negative Nose: reports: Reviewed and negative Throat: reports: Reviewed and negative Cardiac: reports: Reviewed and negative Respiratory: reports: Reviewed and negative GI: reports: Reviewed and negative : reports: Reviewed and negative Skin: reports: Laceration (s) Musculoskeletal: reports: Reviewed and negative Neurologic: reports: Reviewed and negative Psychiatric: reports: Reviewed and negative Endocrine: reports: Reviewed and negative Immunocompromised: reports: Reviewed and negative PD PAST MEDICAL HISTORY - Past Medical History Cardiovascular: Hypertension, High cholesterol Respiratory: None Endocrine/Autoimmune: None GI: None : Benign prostate hypertrophy, Frequency HEENT: None Psych: Anxiety Musculoskeletal: Osteoarthritis, Chronic back pain Derm: Other - Past Surgical History Past Surgical History: No General: Colonoscopy - Present Medications Home Medications: Ambulatory Orders Medication Instructions Recorded Confirmed Tamsulosin [Flomax] 0.4 mg PO DAILY 04/02/13 03/08/21 Aspirin [[place] Aspirin] 81 mg PO DAILY 03/08/21 03/08/21 HYDROcod/ACETAM 5/325 [[place] 5/325] 1 - 2 tablet PO Q6H PRN #14 tablet 03/08/21 Indomethacin [Indocin] 50 mg PO QID 03/08/21 03/08/21 cephALEXin [Keflex] 500 mg PO Q6H #28 03/08/21 traMADol [Ultram] 50 mg PO BID 03/08/21 03/08/21 traZODone [Desyrel] 50 mg PO QPM 03/08/21 03/08/21 - Allergies Allergies/Adverse Reactions: Allergies Allergy/AdvReac Type Severity Reaction Status Date / Time No Known Drug Allergies Allergy Verified 03/08/21 09:10 - Social History Does the pt smoke?: No Smoking Status: Never smoker Does the pt drink ETOH?: Yes - Immunizations Immunizations are current?: Yes PD ED PE NORMAL - Vitals Vital signs reviewed: Yes - General General: Alert and oriented X 3, No acute distress, Well developed/nourished - HEENT HEENT: Atraumatic, PERRL, EOMI, Moist mucous membranes - Neck Neck: Supple, no meningeal sign - Cardiac Cardiac: Strong equal pulses - Respiratory Respiratory: No respiratory distress - Derm Derm: Warm and dry, Other (Laceration with near amputation of L distal thumb, involving nail/nail bed. Laceration extends through skin/tissue on either side of nail. No involvement of germinal matrix or IP joint. No FB.) - Extremities Extremities: No deformity - Neuro Neuro: Alert and oriented X 3 - Psych Psych: Normal mood, Normal affect Results - Vitals Vitals: Vital Signs - 24 hr 03/08/21 03/08/21 11:13 12:07 Temperature 36.6 C Heart Rate 69 80 Respiratory 18 17 Rate Blood Pressure 200/117 H 179/70 H O2 Saturation 96 100 Oxygen O2 Source Room air - Rads (name of study) XR L thumb Radiology: Final report received, EMP read indepedently, See rad report (TUft fx) Procedures - Laceration (location) L thumb Length in cm: 4 Wound type: Linear, Into subcut fat, Clean, Exposure of bone, Other (Involvement of nail bed/ complete laceration across nail.) Neurovascular status: Sensory intact, Motor intact, Vascular intact Anesthesia: Marcaine 0.5%, Volume - enter ml (1) Wound preparation: Hibiclens, Irrigated copiously NS, Wound explored, To the base, Other (Severed distal nail removed by dissection with scissors.). No: FB identified Skin layer closure: Nylon, Interrupted, Size #-0 - enter number (5.0), Sutures - enter # (5) Other: Patient tolerated well, No complications, Neurovascular intact, Dressing applied - Splint (location) L thumb Splint applied by: Nurse Type of splint: Metal foam finger splint Other: Patient tolerated well, No complications, Neurovascular intact - Regional nerve block Nerve block site: Digital - note digit(s) (L thumb) Nerve block anesthesia: Marcaine 0.5% Nerve block aftercare: Excellent anesthesia, Patient tolerated well, No complications PD MEDICAL DECISION MAKING - ED course Complexity details: reviewed results, re-evaluated patient, considered differential, d/w patient, d/w family ED course: XR showed a tuft fx of L thumb, and pt was started on abx for this. After digital block, nail was removed. laceration on either side of nail sutured, which resulted in good approximation of nailbed laceration. Given that germinal matrix was not involved, and proximal nail was intact, and that in order to suture nailbed, I would have to remove intact nail, I felt that with the degree of approximation, and the fact that the thumb would be splinted, it would be best to leave the nail in place and allow the nailbed portion of the laceration to heal as is. Wound was dressed. We have discussed suture removal in 10 days and the need for abx. Pt has been given the contact info for Dr. Artem Baires, hand surgeon through [employer], for follow-up if needed. We have discussed the usual indications for return. Departure - Departure Disposition: 01 Home, Self Care Clinical Impression: Nailbed laceration, finger Qualifiers: Encounter type: initial encounter Qualified Code(s): S61.319A - Laceration without foreign body of unspecified finger with damage to nail, initial encounter Open fracture of left thumb Qualifiers: Encounter type: initial encounter Phalanx: distal Fracture alignment: nondisplaced Qualified Code(s): S62.525B - Nondisplaced fracture of distal phalanx of left thumb, initial encounter for open fracture Laceration of thumb with damage to nail Qualifiers: Encounter type: initial encounter Foreign body presence: without foreign body Laterality: left Qualified Code(s): S61.112A - Laceration without foreign body of left thumb with damage to nail, initial encounter Condition: Stable Instructions: ED Fx Finger Open, ED Laceration Ext Sutr Stap Tape, ED Removal Nail Follow-Up: Artem Baires MD [Physician No Access] - Prescriptions: cephALEXin [Keflex] 500 mg PO Q6H #28 HYDROcod/ACETAM 5/325 [[place] 5/325] 1 - 2 tablet PO Q6H PRN #14 tablet PRN Reason: Pain Comments: Your x-ray shows that you have broken the very tip of the bone at the end of your thumb. Because of this, you have been started on antibiotics in the emergency department. Your wounds have come together nicely with suturing. The suture should be left in place for 10 days and then removed by medical professional, either at your primary doctor's office, urgent care, or the emergency department. You may follow-up with your primary care physician if you are not having any issues with the thumb; however, if you have any further concerns at all, you should see the hand specialist as recommended. Please keep the splint on for the next 4 weeks. You may take it off to wash her thumb, but then should put it back in place. Please follow-up with your primary care physician in 10 days to have your wound rechecked and sutures removed. A repeat x-ray may be done at this time. Discharge Date/Time: 03/08/21 12:08
[2021-03-08] MEDS ORDERED: cephALEXin 250 MG CAPSULE PO STA (11:13)
[2021-03-08 12:08] VITALS: BP 179/70
== END 2021-03-08 12:08 | disposition home or self-care (01) ==
LOC: ED 08:57
DX: S62.525B Nondisplaced fracture of distal phalanx of left thumb, initial encounter for open fracture (principal); W29.3XXA Contact with powered garden and outdoor hand tools and machinery, initial encounter; Y93.H2 Activity, gardening and landscaping; Z23 Encounter for immunization; I10 Essential (primary) hypertension; Z79.82 Long term (current) use of aspirin
CPT/HCPCS: 13132; 73140; 90471; 90715; 99283; A9270

== ENCOUNTER 2021-03-10 10:31 | Emergency (ER) | payer MEDICARE, OTHER ==
--- OUTSIDE RECORDS SUMMARY | 2021-03-10 10:34 | EXTERNAL MEDICAL SUMMARY RPT | Continuity of Care Document ---
:1945 Demographics Phone Unavailable Preferred Language Unknown Marital Status Unknown Restoration Affiliation Unknown Race Unknown Ethnic Group Unknown Author Organization [facility] Address [address] [id number] Phone Allergies Encounters Medications Problems Results
[2021-03-10] MEDS ORDERED: ceFAZolin 3 GM in SODIUM CHLORIDE 0.9% 100ML 100 ML IV STA (10:53)
[2021-03-10] MEDS ORDERED: fentaNYL 100 MCG/2 ML VIAL IVP STA ×2 (10:56→11:55)
--- OUTSIDE RECORDS SUMMARY | 2021-03-10 11:00 | EXTERNAL MEDICAL SUMMARY RPT | Continuity of Care Document ---
:1945 Demographics Phone Unavailable Preferred Language Unknown Marital Status Unknown Orthodoxy Affiliation Unknown Race Unknown Ethnic Group Unknown Author Organization [facility] Address [address] [place] [address] Phone Allergies Encounters Medications Problems Results
[2021-03-10 11:09] LABS: BASOPHILS # (AUTO) 0.1 10^3/uL (0.0-0.1); BASOPHILS % (AUTO) 0.7 %; EOSINOPHILS # (AUTO) 0.1 10^3/uL (0.0-0.7); EOSINOPHILS % (AUTO) 1.4 %; HGB - HEMOGLOBIN 15.5 g/dL (14.0-18.0); LYMPHOCYTES # (AUTO) 1.6 10^3/uL (1.5-3.5); LYMPHOCYTES % (AUTO) 21.3 %; MEAN CORPUSCULAR HEMOGLOBIN 31.6 pg (27.0-31.0); MEAN CORPUSCULAR HGB CONC 33.7 g/dL (32.0-36.0); MEAN CORPUSCULAR VOLUME 93.7 fL (80.0-94.0); MEAN PLATELET VOLUME 10.6 fL (7.4-11.4); MONOCYTES # (AUTO) 0.5 10^3/uL (0.0-1.0); MONOCYTES % (AUTO) 7.4 %; NEUTROPHILS # (AUTO) 5.1 10^3/uL (1.5-6.6); NEUTROPHILS % (AUTO) 69.1 %; PLT - PLATELET COUNT 157 10^3/uL (130-450); RED BLOOD COUNT 4.91 10^6/uL (4.70-6.10); RED CELL DISTRIBUTION WIDTH 12.1 % (12.0-15.0); WHITE BLOOD COUNT 7.3 x10^3/uL (4.8-10.8)
[2021-03-10 11:19] LABS: ALBUMIN 4.4 g/dL (3.2-5.5); ALBUMIN/GLOBULIN RATIO 1.5 (1.0-2.2); BILIRUBIN,TOTAL 1.6 mg/dL (0.2-1.0); INR 1.1 (0.8-1.2); POTASSIUM 4.4 mmol/L (3.5-5.0); PT - PROTHROMBIN TIME 12.7 secs (9.9-12.6); TOTAL PROTEIN 7.4 g/dL (6.7-8.2)
[2021-03-10 11:27] LABS: PARTIAL THROMBOPLASTIN TIME 27.3 secs (24.9-33.3)
--- NOTE | 2021-03-10 11:59 | ED Physician Documentation ---
History of Present Illness - Stated complaint Stated Complaint: RT HAND INJ - Chief complaint Chief Complaint: Trauma Ext - History obtained from History obtained from: Patient - Additonal information Additional information: 75-year-old man presents with right index finger partial amputation while using power tools today. History limited by patient acuity Review of Systems Skin: reports: Laceration (s) Musculoskeletal: reports: Extremity pain Neurologic: reports: Focal weakness, Numbness PD PAST MEDICAL HISTORY - Past Medical History Past Medical History: Yes Cardiovascular: Hypertension, High cholesterol Respiratory: None Endocrine/Autoimmune: None GI: None : Benign prostate hypertrophy, Frequency HEENT: None Psych: Anxiety Musculoskeletal: Osteoarthritis, Chronic back pain Derm: Other - Past Surgical History Past Surgical History: No General: Colonoscopy - Present Medications Home Medications: Ambulatory Orders Medication Instructions Recorded Confirmed Tamsulosin [Flomax] 0.4 mg PO DAILY 04/02/13 03/10/21 Aspirin [[place] Aspirin] 81 mg PO DAILY 03/08/21 03/10/21 HYDROcod/ACETAM 5/325 [[place] 5/325] 1 - 2 tablet PO Q6H PRN #14 tablet 03/08/21 03/10/21 Indomethacin [Indocin] 50 mg PO QID 03/08/21 03/10/21 cephALEXin [Keflex] 500 mg PO Q6H #28 03/08/21 03/10/21 traMADol [Ultram] 50 mg PO BID 03/08/21 03/10/21 traZODone [Desyrel] 50 mg PO QPM 03/08/21 03/10/21 - Allergies Allergies/Adverse Reactions: Allergies Allergy/AdvReac Type Severity Reaction Status Date / Time No Known Drug Allergies Allergy Verified 03/08/21 09:10 - Social History Does the pt smoke?: No Smoking Status: Never smoker Does the pt drink ETOH?: Yes - Immunizations Immunizations are current?: Yes PD ED PE NORMAL - Derm Derm: Normal color, Warm and dry, Other (3cm laceration/partial amputation of R second finger.) - Extremities Extremities: Other (partial amputation of second middle phalanx palmar aspect of right hand with superficial bone involvement. small amount of arterial bleeding, controlled with direct pressure. discoloration of distal finger with diminished capillary refill.) - Neuro Neuro: Alert and oriented X 3 Results - Vitals Vitals: Vital Signs - 24 hr 03/10/21 03/10/21 03/10/21 10:36 11:20 11:54 Temperature 37.2 C Heart Rate 100 83 74 Respiratory 18 16 20 Rate Blood Pressure 201/102 H 165/98 H 164/95 H O2 Saturation 99 100 96 03/10/21 03/10/21 12:08 12:30 Temperature Heart Rate 66 Respiratory 20 Rate Blood Pressure 157/98 H 146/81 H O2 Saturation 96 Oxygen O2 Source Room air - Labs Labs: Laboratory Tests 03/10/21 03/10/21 03/10/21 10:47 10:47 10:47 WBC 7.3 RBC 4.91 Hgb 15.5 Hct 46.0 MCV 93.7 MCH 31.6 H MCHC 33.7 RDW 12.1 Plt Count 157 MPV 10.6 Neut # (Auto) 5.1 Lymph # (Auto) 1.6 [place] # (Auto) 0.5 Eos # (Auto) 0.1 Baso # (Auto) 0.1 Absolute Nucleated RBC 0.00 Nucleated RBC % 0.0 PT 12.7 H INR 1.1 APTT 27.3 Sodium 136 Potassium 4.4 Chloride 100 L Carbon Dioxide 25 Anion Gap 11.0 BUN 23 H Creatinine 1.0 Estimated GFR (MDRD) 73 L Glucose 135 H Calcium 9.0 Total Bilirubin 1.6 H AST 25 ALT 22 Alkaline Phosphatase 74 Total Protein 7.4 Albumin 4.4 Globulin 3.0 Albumin/Globulin Ratio 1.5 Lipase 21 L Nasal Adenovirus (PCR) Nasal B. parapertussis DNA (PCR) Nasal Coronavir 229E PCR Nasal Coronavir HKU1 PCR Nasal Coronavir NL63 PCR Nasal Coronavir OC43 PCR Nasal Enterovir/Rhinovir PCR Nasal Influenza B PCR Nasal Influenza A PCR Nasal Parainfluen 1 PCR Nasal Parainfluen 2 PCR Nasal Parainfluen 3 PCR Nasal Parainfluen 4 PCR Nasal RSV (PCR) Nasal B.pertussis DNA PCR Nasal C.pneumoniae (PCR) Brandan Human Metapneumo PCR Nasal M.pneumoniae (PCR) Nasal SARS-CoV-2 (PCR) 03/10/21 10:52 WBC RBC Hgb Hct MCV MCH MCHC RDW Plt Count MPV Neut # (Auto) Lymph # (Auto) Free[place] # (Auto) Eos # (Auto) Baso # (Auto) Absolute Nucleated RBC Nucleated RBC % PT INR APTT Sodium Potassium Chloride Carbon Dioxide Anion Gap BUN Creatinine Estimated GFR (MDRD) Glucose Calcium Total Bilirubin AST ALT Alkaline Phosphatase Total Protein Albumin Globulin Albumin/Globulin Ratio Lipase Nasal Adenovirus (PCR) NOT DETECTED Nasal B. parapertussis DNA (PCR) NOT DETECTED Nasal Coronavir 229E PCR NOT DETECTED Nasal Coronavir HKU1 PCR NOT DETECTED Nasal Coronavir NL63 PCR NOT DETECTED Nasal Coronavir OC43 PCR NOT DETECTED Nasal Enterovir/Rhinovir PCR NOT DETECTED Nasal Influenza B PCR NOT DETECTED Nasal Influenza A PCR NOT DETECTED Nasal Parainfluen 1 PCR NOT DETECTED Nasal Parainfluen 2 PCR NOT DETECTED Nasal Parainfluen 3 PCR NOT DETECTED Nasal Parainfluen 4 PCR NOT DETECTED Nasal RSV (PCR) NOT DETECTED Nasal B.pertussis DNA PCR NOT DETECTED Nasal C.pneumoniae (PCR) NOT DETECTED Brandan Human Metapneumo PCR NOT DETECTED Nasal M.pneumoniae (PCR) NOT DETECTED Nasal SARS-CoV-2 (PCR) NOT DETECTED PD MEDICAL DECISION MAKING - ED course ED course: d/w Prov cecelia hand surgeon Dr. Alonso who is aware of patient. d/w Dr. Yeboah, ED provider accepting. patient requesting to go by private vehicle. bleeding controlled, tdap update, abx completed. 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
[2021-03-10 12:07] LABS: B. PARAPERTUSSIS- RESP PCR PAN NOT DETECTED; B. PERTUSSIS- RESP PCR PANEL NOT DETECTED; C. PNEUMONIAE- RESP PCR PANEL NOT DETECTED; CORONAVIRUS 229E-RESP PCR NOT DETECTED; CORONAVIRUS HKU1-RESP PCR NOT DETECTED; CORONAVIRUS NL63-RESP PCR NOT DETECTED; CORONAVIRUS OC43-RESP PCR NOT DETECTED; HUMAN METAPNEUMOVIRUS NOT DETECTED; INFLUENZA A- RESP PCR PANEL NOT DETECTED; INFLUENZA B - RESP PCR PANEL NOT DETECTED; M. PNEUMONIAE- RESP PCR PANEL NOT DETECTED; PARAINFLUENZA VIRUS 1 NOT DETECTED; PARAINFLUENZA VIRUS 2 NOT DETECTED; PARAINFLUENZA VIRUS 3 NOT DETECTED; PARAINFLUENZA VIRUS 4 NOT DETECTED; RHINOVIRUS/ENTEROVIRUS NOT DETECTED; RSV- RESP PCR PANEL NOT DETECTED; SARS-CoV-2 -RESP PCR PANEL NOT DETECTED
[2021-03-10 12:34] VITALS: BP 146/81
--- NOTE | 2021-03-10 12:37 | XRAY Report ---
PROCEDURE: Finger(s) RT INDICATIONS: partial amputation R first finger TECHNIQUE: AP hand, 2 views of the second finger(s) acquired. COMPARISON: None FINDINGS: Bones: Acute oblique fracture through distal shaft of second middle phalanx is seen with slight media l displacement at fracture site. Dorsal angulation and displacement at fracture site is also seen. No suspicious bony lesions. Soft tissues: No suspicious soft tissue calcifications. No radiopaque foreign bodies. IMPRESSION: Acute slightly displaced angulated fracture through distal shaft of second middle phalanx as above. N o radiopaque foreign body. Reviewed by: Efe Rudd MD on 03/10/2021 12:35 PM PDT Approved by: Efe Rudd MD on 03/10/2021 12:35 PM PDT Station ID: [id number]
== END 2021-03-10 12:35 | disposition short-term general hospital (02) ==
LOC: ED 10:31
DX: S68.620A Partial traumatic transphalangeal amputation of right index finger, initial encounter (principal); W29.3XXA Contact with powered garden and outdoor hand tools and machinery, initial encounter; Y93.H2 Activity, gardening and landscaping; Z20.822 Contact with and (suspected) exposure to COVID-19; I10 Essential (primary) hypertension; Z79.82 Long term (current) use of aspirin
CPT/HCPCS: 0202U; 36415; 80053; 83690; 85025; 85610; 85730; 96365; 96375; 96376; 99285

== ENCOUNTER 2021-04-14 14:57 | Outpatient (CLI) | payer MEDICARE, OTHER ==
--- NOTE | 2021-04-14 15:44 | SLEEP CARE CONSULTATION ---
Information from patient questionnaire entered by Melissa Nunez. I have reviewed and concur with the information entered by Melissa Nunez. This document represents the service I personally performed and the decisions made by , Meagan Garcia ARNP. History of Present Illness Service Date and Time: 04/14/2021 1457 Previous diagnosis: Moderate, Obstructive Sleep Apnea-Hypopnea Syndrome AHI: 21.0 (in 2019) Reason for follow up: annual (last seen 01/2020) Equipment type: CPAP Equipment obtained from: [facility] (never requested supplies) Mask style: Nasal Mask brand: Respironics (Wisp) Backup mask available: No (will need to keep mask when replaced) Last cushion change: over a year Prior sleep studies: Yes Year and Where: 2019 - [facility] Type of Sleep Study: Polysomnography HPI additional information: KAMILLE PARR was diagnosed to have moderate, AHI 21.0, obstructive sleep apnea- hypopnea syndrome and returned today with spouse for CPAP therapy annual follow- up. CPAP Compliance Data - Data Reviewed with Patient Average duration of nightly device use: 5 hr 50 min Compliance rate %: 62 (180 days) Current pressure setting (cmH2O): 4-15 (median 5.9, 95th avg 8.4, max 9.5) Humidity settin Average residual AHI: 2.7 Subjective Missed days of use due to: reports: mask issues (needs mask replacemen) Patient concerns: reports: mask leak noise, dry mouth, nose, throat, other (detachment of hose). denies: aerophagia, mask discomfort, air blowing in eyes, condensation in mask/hose, nasal congestion, epistaxis Observed to snore while using device: No Current pressure setting perceived as: comfortable On therapy, patient: reports: sleeping better, awakening more refreshed, being more awake and alert during the day, more rested overall. denies: drowsiness while driving Initial [place] Sleepiness Scale score: 1 (in 2019) Current [place] Sleepiness Scale score: 2 Allergies and Home Medications Home medication list reviewed: Yes (Hydroxyzine for sleep) Review of Systems Review of systems same as previous: No (injury Left thumb; R 1st finger injury/surgery in March) Physical Exam Heart Rate: 86 O2 Saturation: 96 Height: 6 ft Weight: 204 lb Body Mass Index: 27.6 BMI Classification: Overweight Impression and Plan 1. Obstructive Sleep Apnea-Hypopnea Syndrome, moderate, with fair treatment compliance and good apnea control. On CPAP therapy, the patient has better sleep quality and is more rested overall. Patient has not been able to get supplies from his original DME for over a year. They did not feel they were not easy to work with because, before he was even on the machine for a month they came to their home trying to take the device back. He has not gotten any supplies from them or online since that time and is still using his original mask,tubing and headset. He states the tubing is coming apart and waking him up at night. I will have my emergency department coordinator inform of DME options. A DWO prescription will then be made. Patient advised to contact this office if further supply problems. Since his compliance seems to be a little bit low I will recheck his compliance in 1 to 2 months. He is satisfied with current treatment would like to keep the current pressure settings since it is comfortable. He voiced understanding and agreement with this plan of care. Patient's apnea severity and rationale for treatment to reduce apnea, improve sleep quality and reduce cardiovascular and cerebrovascular events was reviewed. I also reviewed the benefit of consistent device use of CPAP for hypertension and arrhythmia. * Continue auto CPAP pressure at 4-15 cmH2O * Transfer DME * Update supplies * Notify me if snoring with mask or feeling that the pressure is too much or too little * Attempt to lose weight * Call this office if any problems using CPAP * Return for follow up in 1-2 months, or sooner if concerns arise Counseling Topics: Spare mask, Weight loss health impact Visit Type: In Office Other Participants: Spouse/Significant Other Time Spent with Patient (minutes): 23 Provider Statement: I spent 100% of the Face to Face Visit with the patient with greater than 50% spent counseling the patient and coordination of care.
== END 2021-04-14 14:58 | disposition home or self-care (01) ==
LOC: SC 14:57
PROVIDERS: ATTEND Nurse Practitioner Family
DX: G47.33 Obstructive sleep apnea (adult) (pediatric) (principal); E66.3 Overweight; Z68.27 Body mass index [BMI] 27.0-27.9, adult
CPT/HCPCS: 99213; G0463; 99212

== ENCOUNTER 2021-05-16 10:47 | Outpatient (CLI) | payer MEDICARE, OTHER ==
--- NOTE | 2021-05-16 11:22 | SLEEP CARE CONSULTATION ---
Information from patient questionnaire entered by Melissa Nunez. I have reviewed and concur with the information entered by Melissa Nunez. This document represents the service I personally performed and the decisions made by , Meagan Garcia ARNP. History of Present Illness Service Date and Time: 05/16/2021 1047 Previous diagnosis: Moderate, Obstructive Sleep Apnea-Hypopnea Syndrome AHI: 21.0 (in 2019) Reason for follow up: one month Equipment type: CPAP Equipment obtained from: Other ([facility]; getting supplies as needed) Mask style: Nasal Mask brand: Respironics (Dreamwear Wisp) Backup mask available: No (will keep old mask when replaced) Last cushion change: 2-3 weeks Prior sleep studies: Yes Year and Where: 2019 - [facility] Type of Sleep Study: Polysomnography HPI additional information: KAMILLE PARR was diagnosed to have moderate, AHI 21.0, obstructive sleep apnea- hypopnea syndrome and returned today with spouse for CPAP therapy one month follow-up. CPAP Compliance Data - Data Reviewed with Patient Average duration of nightly device use: 6 hr 35 min Compliance rate %: 93 Current pressure setting (cmH2O): 4-15 Humidity settin Average residual AHI: 2.9 Subjective Patient concerns: reports: mask discomfort, dry mouth, nose, throat (better with current mask ). denies: aerophagia, air blowing in eyes, mask leak noise, condensation in mask/hose, nasal congestion, epistaxis, other Observed to snore while using device: No Current pressure setting perceived as: comfortable On therapy, patient: reports: sleeping better, awakening more refreshed, being more awake and alert during the day, more rested overall. denies: drowsiness while driving Initial [place] Sleepiness Scale score: 1 (in 2019) Current [place] Sleepiness Scale score: 4 Allergies and Home Medications Home medication list reviewed: Yes (no changes) Review of Systems Review of systems same as previous: Yes (no changes) Physical Exam Heart Rate: 86 O2 Saturation: 96 Height: 6 ft Weight: 213 lb 3.2 oz Body Mass Index: 28.9 BMI Classification: Overweight Impression and Plan 1. Obstructive Sleep Apnea-Hypopnea Syndrome, moderate, with good treatment compliance and good apnea control. On CPAP therapy, the patient has better sleep quality and is more rested overall. He is satisfied with current treatment and pressure setting. He has had some issues with dry mouth but feels this has improved with being able to get replacement supplies. He is compliant with his CPAP use. We will follow up with him in a year. Patient's apnea severity and rationale for treatment to reduce apnea, improve sleep quality and reduce cardiovascular and cerebrovascular events was reviewed. I also reviewed the benefit of consistent device use of CPAP for hypertension and arrhythmia. * Continue auto CPAP pressure at 4-15 cmH2O * Notify me if snoring with mask or feeling that the pressure is too much or too little * Attempt to lose weight * Call this office if any problems using CPAP * Return for follow up in 1 year, or sooner if concerns arise Counseling Topics: Spare mask, Weight loss health impact Visit Type: In Office Time Spent with Patient (minutes): 18 Provider Statement: I spent 100% of the Face to Face Visit with the patient with greater than 50% spent counseling the patient and coordination of care.
== END 2021-05-16 10:48 | disposition home or self-care (01) ==
LOC: SC 10:47
PROVIDERS: ATTEND Nurse Practitioner Family
DX: G47.33 Obstructive sleep apnea (adult) (pediatric) (principal)
CPT/HCPCS: 99212; G0463

== ENCOUNTER 2021-06-06 11:50 | Outpatient (CLI) | payer MEDICARE, OTHER ==
--- NOTE | 2021-06-06 22:58 | XRAY Report ---
PROCEDURE: Cervical Spine 2 View INDICATIONS: CHRONIC HEADACHE,CHRONIC NECK PAIN TECHNIQUE: 3 view(s) of the cervical spine were acquired. COMPARISON: None. FINDINGS: Bones: No fractures or dislocations to the T1 level. The lateral masses of C1 appear intact on the odontoid view. There is atlantodental interval degeneration. Trace C3 retrolisthesis. Otherwise nelly l alignment. Moderate to severe disc height loss C5-6, C6-7, C7-T1 with anterior endplate osteophytos is and C5-6 posterior endplate osteophytes. Prominent facet arthropathy on the left at C4-5. No suspi cious bony lesions. Soft tissues: No prevertebral soft tissue swelling. Right carotid bulb calcifications. 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 Reviewed by: Marisol Ledbetter MD on 06/06/2021 10:57 PM PDT Approved by: Marisol Ledbetter MD on 06/06/2021 10:57 PM PDT Station ID: [id number]
== END 2021-06-06 11:51 | disposition home or self-care (01) ==
LOC: DI 11:50
PROVIDERS: ATTEND Psychiatry & Neurology Neurology
DX: R51.9 Headache, unspecified (principal); M43.12 Spondylolisthesis, cervical region; M50.322 Other cervical disc degeneration at C5-C6 level; M47.812 Spondylosis without myelopathy or radiculopathy, cervical region

== ENCOUNTER 2021-11-02 11:45 | Outpatient (CLI) | payer MEDICARE, OTHER ==
[2021-11-02 18:36] LABS: BASOPHILS # (AUTO) 0.1 10^3/uL (0.0-0.1); BASOPHILS % (AUTO) 0.7 %; EOSINOPHILS # (AUTO) 0.1 10^3/uL (0.0-0.7); HCT - HEMATOCRIT 47.3 % (42.0-52.0); LYMPHOCYTES # (AUTO) 2.5 10^3/uL (1.5-3.5); LYMPHOCYTES % (AUTO) 24.5 %; MEAN CORPUSCULAR HEMOGLOBIN 32.2 pg (27.0-31.0); MEAN CORPUSCULAR HGB CONC 33.8 g/dL (32.0-36.0); MEAN CORPUSCULAR VOLUME 95.2 fL (80.0-94.0); MEAN PLATELET VOLUME 10.5 fL (7.4-11.4); MONOCYTES # (AUTO) 0.7 10^3/uL (0.0-1.0); MONOCYTES % (AUTO) 6.6 %; NEUTROPHILS # (AUTO) 6.9 10^3/uL (1.5-6.6); NEUTROPHILS % (AUTO) 66.9 %; PLT - PLATELET COUNT 175 10^3/uL (130-450); RED BLOOD COUNT 4.97 10^6/uL (4.70-6.10); WHITE BLOOD COUNT 10.3 x10^3/uL (4.8-10.8)
[2021-11-02 18:45] LABS: ALBUMIN 4.4 g/dL (3.2-5.5); ALBUMIN/GLOBULIN RATIO 1.3 (1.0-2.2); ALKALINE PHOSPHATASE 62 IU/L (42-121); ALT ALANINE AMINOTRANSFERASE 64 IU/L (10-60); AST ASPARTATE AMINOTRANSFERASE 34 IU/L (10-42); BILIRUBIN,TOTAL 1.4 mg/dL (0.2-1.0); BUN - BLOOD UREA NITROGEN 20 mg/dL (6-20); CALCIUM 9.2 mg/dL (8.5-10.3); CARBON DIOXIDE - CO2 24 mmol/L (21-32); CHLORIDE 102 mmol/L (101-111); CHOL/HDL RATIO 5.2 (<5.0); CHOLESTEROL 229 mg/dL; CREATININE 1.1 mg/dL (0.6-1.2); GFR - MDRD 65 (>89); GLUCOSE 100 mg/dL (70-100); HDL CHOLESTEROL 44 mg/dL; LDL CHOLESTEROL,CALCULATED 116 mg/dL; LDL/HDL RATIO 2.6 (<3.6); POTASSIUM 4.8 mmol/L (3.5-5.0); SODIUM 135 mmol/L (135-145); TOTAL PROTEIN 7.7 g/dL (6.7-8.2); TRIGLYCERIDES 346 mg/dL; VLDL CHOLESTEROL 69 mg/dL
[2021-11-02 18:52] LABS: THYROID STIMULATING HORMONE 1.98 uIU/mL (0.34-5.60)
[2021-11-02 20:21] LABS: ESTIMATED AVERAGE GLUCOSE 126 mg/dL (70-100)
== END 2021-11-02 11:46 | disposition home or self-care (01) ==
LOC: LAB.N 11:45
PROVIDERS: ATTEND Internal Medicine
DX: I10 Essential (primary) hypertension (principal); R73.03 Prediabetes; I47.1 Supraventricular tachycardia; N40.0 Benign prostatic hyperplasia without lower urinary tract symptoms
CPT/HCPCS: 36415; 80053; 80061; 83036; 83721; 84153; 84443; 85025

== ENCOUNTER 2021-11-02 11:51 | Outpatient (CLI) | payer MEDICARE, OTHER ==
--- NOTE | 2021-11-02 21:22 | XRAY Report ---
PROCEDURE: Chest 2 View X-Ray INDICATIONS: DYSPNEA / HX OF REMOTE COVID 19 INFECTION, ASSESS FOR INFILTRATES TECHNIQUE: 2 view(s) of the chest. COMPARISON: None. FINDINGS: Surgical changes and devices: None. Lungs and pleura: No pleural effusions or pneumothorax. Lungs are clear. Mediastinum: Mediastinal contours are normal. Heart size is normal. Bones and chest wall: No suspicious bony abnormalities. Soft tissues appear unremarkable. IMPRESSION: No evidence acute pulmonary process. Reviewed by: Stephen Zamudio MD on 11/02/2021 9:21 PM PST Approved by: Stephen Zamudio MD on 11/02/2021 9:21 PM PST Station ID: [id number]
== END 2021-11-02 11:52 | disposition home or self-care (01) ==
LOC: DI.N 11:51
PROVIDERS: ATTEND Internal Medicine
DX: R06.00 Dyspnea, unspecified (principal); Z86.16 Personal history of COVID-19; I10 Essential (primary) hypertension; R73.03 Prediabetes; I47.1 Supraventricular tachycardia; N40.0 Benign prostatic hyperplasia without lower urinary tract symptoms
CPT/HCPCS: 36415; 80053; 80061; 83036; 83721; 84153; 84443; 85025

== ENCOUNTER 2023-09-29 09:01 | Outpatient (CLI) | payer MEDICARE, OTHER ==
[2023-09-29 09:37] LABS: BASOPHILS # (AUTO) 0.1 10^3/uL (0.0-0.1); BASOPHILS % (AUTO) 0.8 %; EOSINOPHILS # (AUTO) 0.3 10^3/uL (0.0-0.7); EOSINOPHILS % (AUTO) 4.1 %; HCT - HEMATOCRIT 43.8 % (42.0-52.0); HGB - HEMOGLOBIN 14.5 g/dL (14.0-18.0); LYMPHOCYTES # (AUTO) 2.3 10^3/uL (1.5-3.5); LYMPHOCYTES % (AUTO) 36.3 %; MEAN CORPUSCULAR HGB CONC 33.1 g/dL (32.0-36.0); MEAN CORPUSCULAR VOLUME 93.8 fL (80.0-94.0); MEAN PLATELET VOLUME 10.1 fL (7.4-11.4); MONOCYTES # (AUTO) 0.5 10^3/uL (0.0-1.0); MONOCYTES % (AUTO) 7.7 %; NEUTROPHILS # (AUTO) 3.2 10^3/uL (1.5-6.6); NEUTROPHILS % (AUTO) 50.9 %; PLT - PLATELET COUNT 153 10^3/uL (130-450); RED BLOOD COUNT 4.67 10^6/uL (4.70-6.10); WHITE BLOOD COUNT 6.4 x10^3/uL (4.8-10.8)
[2023-09-29 09:53] LABS: ALBUMIN 4.4 g/dL (3.2-5.5); ALBUMIN/GLOBULIN RATIO 1.8 (1.0-2.2); ALKALINE PHOSPHATASE 72 IU/L (42-121); ALT ALANINE AMINOTRANSFERASE 53 IU/L (10-60); AST ASPARTATE AMINOTRANSFERASE 28 IU/L (10-42); BILIRUBIN,TOTAL 1.6 mg/dL (0.2-1.0); BUN - BLOOD UREA NITROGEN 30 mg/dL (6-20); CALCIUM 9.5 mg/dL (8.5-10.3); CARBON DIOXIDE - CO2 27 mmol/L (21-32); CHLORIDE 104 mmol/L (101-111); CHOL/HDL RATIO 2.9 (<5.0); CHOLESTEROL 115 mg/dL; CREATININE 1.2 mg/dL (0.6-1.3); GFR - MDRD 59 (>89); GLUCOSE 121 mg/dL (74-104); HDL CHOLESTEROL 39 mg/dL; LDL CHOLESTEROL,CALCULATED 49 mg/dL; LDL/HDL RATIO 1.3 (<3.6); POTASSIUM 4.7 mmol/L (3.5-4.5); SODIUM 137 mmol/L (135-145); TOTAL PROTEIN 6.9 g/dL (6.4-8.9); TRIGLYCERIDES 133 mg/dL (48-352); VLDL CHOLESTEROL 27 mg/dL
[2023-09-29 10:03] LABS: CREATININE,URINE 221.8 mg/dL; MICROALBUM/CREATININE RATIO,UR 3.2 ug/mg (<30.0); MICROALBUMIN,URINE 0.7 mg/dL
[2023-09-29 10:05] LABS: THYROID STIMULATING HORMONE 2.46 uIU/mL (0.34-5.60)
[2023-09-29 10:16] LABS: ESTIMATED AVERAGE GLUCOSE 120 mg/dL (70-100); HEMOGLOBIN A1c% 5.8 % (4.27-6.07)
== END 2023-09-29 09:02 | disposition home or self-care (01) ==
LOC: LAB 09:01
PROVIDERS: ATTEND Internal Medicine
DX: E78.5 Hyperlipidemia, unspecified (principal); R73.03 Prediabetes; I10 Essential (primary) hypertension; N40.0 Benign prostatic hyperplasia without lower urinary tract symptoms; I47.19 Other supraventricular tachycardia
CPT/HCPCS: 36415; 80053; 80061; 82043; 82570; 83036; 83721; 84153; 84443; 85025

== ENCOUNTER 2023-12-19 06:55 | Outpatient (CLI) | payer MEDICARE, OTHER ==
[2023-12-19 07:19] LABS: HCT - HEMATOCRIT 41.9 % (42.0-52.0); HGB - HEMOGLOBIN 13.8 g/dL (14.0-18.0); MEAN CORPUSCULAR HEMOGLOBIN 31.5 pg (27.0-31.0); MEAN CORPUSCULAR HGB CONC 32.9 g/dL (32.0-36.0); MEAN CORPUSCULAR VOLUME 95.7 fL (80.0-94.0); MEAN PLATELET VOLUME 10.1 fL (7.4-11.4); RED BLOOD COUNT 4.38 10^6/uL (4.70-6.10); RED CELL DISTRIBUTION WIDTH 12.1 % (12.0-15.0); WHITE BLOOD COUNT 5.9 x10^3/uL (4.8-10.8)
[2023-12-19 07:25] LABS: ALBUMIN 4.3 g/dL (3.2-5.5); ALKALINE PHOSPHATASE 66 IU/L (42-121); ALT ALANINE AMINOTRANSFERASE 31 IU/L (10-60); AST ASPARTATE AMINOTRANSFERASE 20 IU/L (10-42); BILIRUBIN,TOTAL 1.3 mg/dL (0.2-1.0); BUN - BLOOD UREA NITROGEN 19 mg/dL (6-20); CALCIUM 9.4 mg/dL (8.5-10.3); CARBON DIOXIDE - CO2 29 mmol/L (21-32); CHLORIDE 107 mmol/L (101-111); CHOL/HDL RATIO 2.6 (<5.0); CHOLESTEROL 105 mg/dL; CREATININE 1.3 mg/dL (0.6-1.3); GFR - MDRD 54 (>89); GLUCOSE 113 mg/dL (74-104); HDL CHOLESTEROL 41 mg/dL; LDL CHOLESTEROL,CALCULATED 47 mg/dL; LDL/HDL RATIO 1.1 (<3.6); POTASSIUM 4.2 mmol/L (3.5-4.5); SODIUM 140 mmol/L (135-145); TOTAL PROTEIN 6.4 g/dL (6.4-8.9); TRIGLYCERIDES 85 mg/dL (48-352); VLDL CHOLESTEROL 17 mg/dL
[2023-12-19 07:41] LABS: THYROID STIMULATING HORMONE 2.58 uIU/mL (0.34-5.60)
--- NOTE | 2023-12-19 10:36 | XRAY Report ---
PROCEDURE: Chest 2V INDICATIONS: BENAVIDES TECHNIQUE: 2 views of the chest were acquired. COMPARISON: Chest radiograph on November 02, 2021. FINDINGS: Surgical changes and devices: None. Lungs and pleura: No pleural effusions or pneumothorax. Lungs are clear. Mediastinum: Mediastinal contours appear normal. Heart size is normal. Bones and chest wall: No suspicious bony lesions. Overlying soft tissues appear unremarkable. Degen erative changes of the spine. IMPRESSION: No acute cardiopulmonary process. Reviewed by: Jorge Gates MD on 12/19/2023 10:35 AM PDT Approved by: Jorge Gates MD on 12/19/2023 10:35 AM PDT Station ID: [id number]
== END 2023-12-19 06:56 | disposition home or self-care (01) ==
LOC: DI 06:55
PROVIDERS: ATTEND Nurse Practitioner
DX: R06.09 Other forms of dyspnea (principal); I10 Essential (primary) hypertension; E78.5 Hyperlipidemia, unspecified; R53.83 Other fatigue
CPT/HCPCS: 36415; 80053; 80061; 83721; 83880; 84443; 85027

== ENCOUNTER 2023-12-31 10:39 | Outpatient (CLI) | payer MEDICARE, OTHER | END 2023-12-31 10:40 | disposition home or self-care (01) | LOC: LAB 10:39 | PROVIDERS: ATTEND Internal Medicine | DX: R06.00 Dyspnea, unspecified (principal) | CPT/HCPCS: 36415; 85379 ==

== ENCOUNTER 2024-01-21 09:17 | Outpatient (CLI) | payer MEDICARE, OTHER ==
--- NOTE | 2024-01-21 17:31 | CT Report ---
PROCEDURE: Chest WO INDICATIONS: DYSPNEA TECHNIQUE: Noncontrast 1.0 and 5.0 mm thick contiguous axial sections from the pulmonary apex to the posterior c ostophrenic angles, with 7 mm thick coronal and sagittal MIP reformats. 1 mm thick dynamic expirator y images acquired through the upper, mid, and lower lungs. 1.0 mm thick axial sections acquired from the camilo to the posterior costophrenic angles in the prone end-inspiration position. COMPARISON: CT chest without contrast dated 03/03/2019 FINDINGS: Image quality: Excellent. Lungs: No significant interstitial lung disease. 2 mm right upper lobe pulmonary nodule medially, im age 178/3. Lung vanegas are clear. Pleura: No pleural effusions or pneumothorax. Mediastinum: Heart size is normal. Moderate three-vessel coronary artery calcifications. No pericar dial effusion. Mild aneurysmal dilatation of the ascending aorta, measuring 4.1 cm. Pulmonary arterie s are normal in caliber. Esophagus is normal in caliber. Bones and chest wall: No suspicious bony lesions. No vertebral body compression fractures. Abdomen: Visualized upper abdominal solid organs and bowel loops appear normal. IMPRESSION: 1. No evidence of chronic pulmonary interstitial lung disease. 2. No acute pulmonary process. 3. 2 mm pulmonary nodule. 4. Mild aneurysmal dilatation of the ascending aorta, measuring 4.1 cm. 5. Moderate three-vessel coronary artery calcifications. Reviewed by: Stephen Zamudio MD on 01/21/2024 5:30 PM PDT Approved by: Stephen Zamudio MD on 01/21/2024 5:30 PM PDT Station ID: [id number]
== END 2024-01-21 09:18 | disposition home or self-care (01) ==
LOC: DI 09:17
PROVIDERS: ATTEND Internal Medicine
DX: R91.1 Solitary pulmonary nodule (principal); I71.21 Aneurysm of the ascending aorta, without rupture; I25.10 Atherosclerotic heart disease of native coronary artery without angina pectoris

== ENCOUNTER 2024-04-27 09:44 | Outpatient (CLI) | payer MEDICARE, OTHER ==
[2024-04-27 10:18] LABS: CALCIUM 9.9 mg/dL (8.5-10.3); CREATININE 1.4 mg/dL (0.6-1.3)
[2024-04-27 11:36] LABS: ESTIMATED AVERAGE GLUCOSE 111 mg/dL (70-100); HEMOGLOBIN A1c% 5.5 % (4.27-6.07)
== END 2024-04-27 09:45 | disposition home or self-care (01) ==
LOC: LAB 09:44
PROVIDERS: ATTEND Internal Medicine
DX: R73.03 Prediabetes (principal)
CPT/HCPCS: 36415; 80048; 83036

== ENCOUNTER 2024-05-24 08:05 | Outpatient (CLI) | payer MEDICARE, OTHER ==
--- NOTE | 2024-05-24 13:31 | Ultrasound Report ---
PROCEDURE: Aorta Duplex Complete INDICATIONS: BILATERAL CLAUDICATION TECHNIQUE: Color and pulse Doppler interrogation was performed of the aorta and iliac arterial systems, with nelson ge documentation. COMPARISON: None. FINDINGS: Aorta: 61 cm/sec, with biphasic flow. Right lower extremity: Proximal common iliac artery: 81cm/sec, with biphasic flow. Distal common iliac artery: Not seen secondary to overlying bowel gas Proximal external iliac artery: 113 cm/sec, with triphasic flow. Distal external iliac artery: 125 cm/sec, with triphasic flow. Common femoral artery: 112 cm/sec, with triphasic flow. Alcocer-scale imaging description: Plaque without stenosis. Normal waveforms. Left lower extremity: Proximal common iliac artery: 138 cm/sec, with biphasic flow. Distal common iliac artery: Not seen secondary to overlying bowel gas. Proximal external iliac artery: 62 cm/sec, with biphasic flow. Distal external iliac artery: 96 cm/sec, with triphasic flow. Common femoral artery: 90 cm/sec, with triphasic flow. Alcocer-scale imaging description: Plaque without stenosis. Normal waveforms. IMPRESSION: 1. No hemodynamically significant aortoiliac stenotic disease. Reviewed by: Stephen Zamudio MD on 05/24/2024 1:30 PM PDT Approved by: Stephen Zamudio MD on 05/24/2024 1:30 PM PDT Station ID: [id number]
--- NOTE | 2024-05-24 13:33 | Ultrasound Report ---
PROCEDURE: Arterial Duplex Lwr Ext BL INDICATIONS: BILATERAL CLAUDICATION TECHNIQUE: Color and pulse Doppler interrogation was performed of both lower extremity arterial systems, with im age documentation. COMPARISON: Aortoiliac duplex ultrasound from the same date FINDINGS: Right lower extremity: Common femoral artery: 83 cm/sec, with triphasic flow. Deep femoral artery: 48 cm/sec, with biphasic flow. Proximal superficial femoral artery: 82 cm/sec, with triphasic flow. Mid superficial femoral artery: 105 cm/sec, with triphasic flow. Distal superficial femoral artery: 34 cm/sec, with biphasic flow. Popliteal artery: 70 cm/sec, with triphasic flow. Posterior tibial artery: 87 cm/sec, with triphasic flow. Anterior tibial artery/dorsalis pedis: 93/112 cm/sec, with triphasic/biphasic flow. Alcocer-scale imaging description: No stenosis. Normal waveforms. Left lower extremity: Common femoral artery: 73 cm/sec, with triphasic flow. Deep femoral artery: 49 cm/sec, with biphasic flow. Proximal superficial femoral artery: 100 cm/sec, with triphasic flow. Mid superficial femoral artery: 83 cm/sec, with triphasic flow. Distal superficial femoral artery: 65 cm/sec, with triphasic flow. Popliteal artery: 64 cm/sec, with triphasic flow. Posterior tibial artery: 37 cm/sec, with biphasic flow. Anterior tibial artery/dorsalis pedis: 84/93 cm/sec, with triphasic/biphasic flow. Alcocer-scale imaging description: No stenosis. Normal waveforms. IMPRESSION: Patent lower extremity vasculature without hemodynamically significant stenosis and normal waveforms. Reviewed by: Stephen Zamudio MD on 05/24/2024 1:32 PM PDT Approved by: Stephen Zamudio MD on 05/24/2024 1:32 PM PDT Station ID: [id number]
== END 2024-05-24 08:06 | disposition home or self-care (01) ==
LOC: DI 08:05
PROVIDERS: ATTEND Internal Medicine
DX: I73.9 Peripheral vascular disease, unspecified (principal)
CPT/HCPCS: 93925; 93978

== ENCOUNTER 2024-06-23 05:48 | Emergency (ER) | payer MEDICARE, OTHER ==
--- NOTE | 2024-06-23 06:02 | ED Physician Documentation ---
PD HPI LOWER EXT INJURY - Stated complaint Stated Complaint: R KNEE PX - History obtained from History obtained from: Patient - History of Present Illness PD HPI LOW EXT INJURY LOCATION: Right, Knee Type of injury: Other (history of some arthritis in knees with occasional pains. No particular injury but is having). No: Fall, Twist Timing - onset: How many days ago (3) Timing - duration: Days (3) Timing - details: Gradual onset, Still present Worsened by: Moving, Other (walking is very painful, abilio turning or twisting movement.) Associated symptoms: No: Weakness, Numbness Contributing factors: No: Prior ortho surgery Review of Systems Constitutional: denies: Fever, Chills Skin: denies: Rash, Lesions Musculoskeletal: reports: Joint swelling Neurologic: denies: Focal weakness, Numbness PD PAST MEDICAL HISTORY - Past Medical History Cardiovascular: Hypertension, High cholesterol Respiratory: None Endocrine/Autoimmune: None GI: None : Benign prostate hypertrophy, Frequency HEENT: None Psych: Anxiety Musculoskeletal: Osteoarthritis, Chronic back pain Derm: Other - Past Surgical History Past Surgical History: No General: Colonoscopy - Present Medications Home Medications: Ambulatory Orders Medication Instructions Recorded Confirmed Tamsulosin [Flomax] 0.4 mg PO DAILY 04/02/13 06/23/24 traMADol [Ultram] 50 mg PO BID PRN 03/08/21 06/23/24 Celecoxib [Celebrex] 0 mg PO DAILY 06/23/24 06/23/24 Cholecalciferol [Vitamin D3] 25 mcg PO DAILY 06/23/24 06/23/24 Gabapentin [Neurontin] 300 mg PO BID 06/23/24 06/23/24 HYDROcodone/ACET 7.5/325 [Koppel 1 each PO Q6H PRN #14 tablet 06/23/24 7.5/325] Irbesartan 0.5 tab PO DAILY PM 06/23/24 06/23/24 Magnesium Oxide 400 mg PO DAILY 06/23/24 06/23/24 - Allergies Allergies/Adverse Reactions: Allergies Allergy/AdvReac Type Severity Reaction Status Date / Time No Known Drug Allergies Allergy Verified 06/23/24 06:00 - Social History Does the pt smoke?: No Smoking Status: Never smoker Does the pt drink ETOH?: Yes - Immunizations Immunizations are current?: Yes PD ED PE NORMAL - Vitals Vital signs reviewed: Yes - General General: Alert and oriented X 3, Well developed/nourished - Derm Derm: Normal color, Warm and dry, No rash - Extremities Extremities: Other (no noted effusion. No laxity on ROM and good cruciate and collateral testing. Pain with rotational impaction most c/w meniscal. Tenderness mostly medial inferior along area of pes anserinus. ) - Neuro Neuro: Alert and oriented X 3, No motor deficit, No sensory deficit Results - Vitals Vitals: Oxygen O2 Source Room air - Rads (name of study) right knee Relevant Findings:: Prelim report reviewed (no fractures. No effusion. Some joint space narrowing medially. ), EMP independent interpretation of test PD Medical Decision Making - ED course Complexity details: reviewed results (pain and tender medial inferior more c/w pes anserinus bursa and tendon insertion. Has some medial joint line pain too. Pain with internal rotation and adduction), re-evaluated patient (he states articulating knee brace feels suuportive and reduces pain of standing and walking quite a bit. Crutches given fro partial weight bearing as well. He was using a golf club. ), considered differential (His pain is in area of tendon and bursa though some element of medial joint line nad knee. Could be meniscal though most seems bursitis. ), d/w patient Departure - Departure Disposition: 01 Home, Self Care Clinical Impression: Acute knee pain, Pes anserinus bursitis of right knee Condition: Stable Record reviewed to determine appropriate education?: Yes Instructions: ED Meniscal Injury Knee Poss, ED Sprain Knee Follow-Up: Kenan Lam MD [Primary Care Provider] - [facility] [Provider Group] Prescriptions: HYDROcodone/ACET 7.5/325 [Koppel 7.5/325] 1 each PO Q6H PRN #14 tablet PRN Reason: pain Comments: Your knee x-ray actually does not look too bad. There is a little bit of arthritis around the sides. There is some subtle loss of meniscal height medially/towards the inside but certainly still a fair amount of meniscal height (it is not "[id number]".) The location of your pain and the tenderness of it is located more in the area of a muscle tendon insertion and there is also a cushion in the area called the bursa. I believe much of your pain right now is bursitis/tendinitis of that area. However this typically would not cause swelling or fluid in the joint itself and you do have some of that. As such I think there may be some element of some meniscal/cartilage inflammation causing the pain as well. The knee brace we gave you is an attempt to reduce more tight rotational and flexion extension movement to some degree and provide a less stress on those structures. Use the crutches for partial weightbearing as well which will be more handy than a golf club and more sturdy. I would suggest some regular anti-inflammatories: You can use [id number] ibuprofen or naproxen and just be sure to have a goodly adult dose. For ibuprofen [id number] 200 mg tablets I would suggest 3 tablets 2-3 times daily with food for the next 5 to 7 days. Alternatively if you using naproxen then 2 to 3 tablets twice daily. Be sure to take them with food. In addition add Tylenol/acetaminophen 500 to 650 mg 4 times daily for pain. Add hydrocodone/acetaminophen if needed for just worse pain episodically. Recheck if not improving well over the next several days to week. Give follow- up with your primary care or return to believe the orthopedic office. Topical anti-inflammatory such as the diclofenac gel that you have is fine as well using 1 to 2 g 2 or 3 times daily. I sent a prescription to your preferred pharmacy. Forms: PCP List Discharge Date/Time: 06/23/24 07:53
[2024-06-23] MEDS: NAPROXEN 250 MG TABLET PO STA (06:39)
[2024-06-23] MEDS: HYDROcod/ACETAM 5/325 MG TABLET PO STA (06:39)
[2024-06-23 07:46] VITALS: BP 113/55; O2SAT 97
--- NOTE | 2024-06-23 09:00 | XRAY Report ---
PROCEDURE: Knee 3V RT INDICATIONS: knee pain with some swelling acutely TECHNIQUE: 3 views of the knee(s) were acquired. COMPARISON: None. FINDINGS: Bones: No fractures or dislocations. No suspicious bony lesions. Soft tissues: No knee joint effusion. No suspicious soft tissue calcifications or masses. IMPRESSION: No acute bony abnormality. Reviewed by: Efe Rudd MD on 06/23/2024 8:59 AM PDT Approved by: Efe Rudd MD on 06/23/2024 8:59 AM PDT Station ID: [id number]
--- NOTE | 2024-06-23 12:30 | ED Physician Documentation ---
ED Addendum - Addendum Addendum: 06/23/24 12:29 [facility] was out of hydrocodone 02/06/2025 and we have substituted hydrocodone 7.5 325 at 1 every 6 as needed #14 transmitted to [facility]
== END 2024-06-23 07:53 | disposition home or self-care (01) ==
LOC: ED 05:48
DX: M70.51 Other bursitis of knee, right knee (principal); I10 Essential (primary) hypertension; E78.00 Pure hypercholesterolemia, unspecified; N40.0 Benign prostatic hyperplasia without lower urinary tract symptoms; Z79.899 Other long term (current) drug therapy
CPT/HCPCS: 73562; 99283; 99284; A9270